=== PATIENT | female | born 1955 | race Caucasian/White ===

== ENCOUNTER 2017-05-03 14:51 | Inpatient (IN) | payer BC ==
[~2017-05-03] VITALS: Ht 152.4 cm; Wt 54.6 kg
[2017-05-03 15:03] VITALS: BP 129/58; PULSE 99; RESP 16; TEMP 99.2; O2SAT 88
[2017-05-03] MEDS ORDERED: SODIUM CHLOR 0.9% 1000 ML INJ 1,000 ML IV ONE (16:15)
[2017-05-03] MEDS ORDERED: ONDANSETRON HCL 4 MG/2 ML VIAL IV PUSH ONE (16:15)
[2017-05-03] MEDS ORDERED: KETOROLAC TROMETHAMINE 30 MG/ML (IVP) VIAL IV PUSH ONE (16:15)
--- NOTE | 2017-05-03 16:33 | RADRPT ---
EXAM DATE/TIME: 05/03/2017 16:17 [facility] COMPARISON: No previous studies available for comparison. INDICATIONS : Cough, congestion, nausea, and fever. MEDICAL HISTORY : None. SURGICAL HISTORY : None. ENCOUNTER: Initial ACUITY: 3 days PAIN SCORE: 0/10 LOCATION: Bilateral chest FINDINGS: Right lung is clear. Heart size is normal. There is a nodular opacity measuring 1.5 cm overlying the left ninth posterior rib at the mid clavicular line. Lung nodule not excluded. No obvious consolidati on or effusion. CONCLUSION: Left lung nodular density identified. CT chest recommended. Vazquez Cabrera MD on May 03, 2017 at 16:30 Board Certified Radiologist. This report was verified electronically.
[2017-05-03 16:38] LABS: AUTOMATED NEUTROPHIL # 9.7 TH/MM3 (1.8-7.7); BASOPHIL % 0.4 % (0.0-2.0); HEMATOCRIT 36.4 % (35.0-46.0); LYMPH % 3.3 % (9.0-44.0); LYMPHOCYTE # 0.4 TH/MM3 (1.0-4.8); MEAN CELL VOLUME 89.7 FL (80.0-100.0); MEAN CORPUSCULAR HEMOGLOBIN 30.1 PG (27.0-34.0); MEAN CORPUSCULAR HGB CONC 33.6 % (32.0-36.0); NEUT % 88.3 % (16.0-70.0); PLATELET COUNT 199 TH/MM3 (150-450); RED BLOOD COUNT 4.06 MIL/MM3 (4.00-5.30)
[2017-05-03 16:43] LABS: CHLORIDE 92 MEQ/L (98-107); POTASSIUM 3.6 MEQ/L (3.5-5.1); SODIUM (NA) 129 MEQ/L (136-145)
[2017-05-03] MEDS ORDERED: RESP: ALBUTEROL 2.5 MG/3 ML NEB (SCH) NEB ONE (16:45)
[2017-05-03 16:47] LABS: ANION GAP 10 MEQ/L (5-15); BICARBONATE 27.4 MEQ/L (21.0-32.0); BLOOD UREA NITROGEN 10 MG/DL (7-18)
[2017-05-03 16:50] LABS: ALT (GPT) 60 U/L (10-53); AST (GOT) 77 U/L (15-37); GLOMERULAR FILTRATION RATE 114 ML/MIN (>89)
[2017-05-03 16:51] LABS: HEMO FLAGS DIFF FINAL
[2017-05-03 16:52] LABS: TOTAL BILIRUBIN ADULT 0.7 MG/DL (0.2-1.0)
[2017-05-03 16:53] LABS: ALKALINE PHOSPHATASE 49 U/L (45-117)
--- NOTE | 2017-05-03 17:03 | PD ---
HPI Chief Complaint: Fever Time Seen by Provider: 16:05 Travel History International Travel<30 days: No Contact w/Intl Traveler<30days: No Traveled to known affect area: No History of Present Illness HPI Patient is a 62-year-old female who comes in complaining of cough, sore throat, feeling unwell for the past 3 days. She says this morning she noticed she had a fever of 102. She also had an episode of vomiting. She says she took some ibuprofen prior to arrival around 12:30 today. She says she feels some tightness in her chest. She denies any abdominal pain. She has not had any leg pain or swelling. She is visiting here from [place] and was supposed to fly back this afternoon. 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 , allergies) Tetanus Vaccination: > 5 Years Influenza Vaccination: No ?: Not Past Surgical History Surgical History: No Previous Surgery Social History Alcohol Use: Yes (wine) Tobacco Use: No Substance Use: No Allergies-Medications (Allergen,Severity, Reaction): Coded Allergies: No Known Allergies (Unverified , 05/03/17) Review of Systems Except as stated in HPI: all other systems reviewed are Neg General / Constitutional: Positive: Fever HENT: No: Headaches, Lightheadedness Cardiovascular: No: Chest Pain or Discomfort Respiratory: Positive: Cough, Shortness of Breath Gastrointestinal: Positive: Vomiting, No: Abdominal Pain Musculoskeletal: No: Edema, Pain Skin: No Rash, No Change in Pigmentation Neurologic: No: Weakness, Dizziness Physical Exam Narrative GENERAL: Awake and alert, no acute distress. SKIN: Focused skin assessment warm/dry. HEAD: Atraumatic. Normocephalic. EYES: Pupils equal and round. No scleral icterus. ENT: Mucous membranes pink and moist. NECK: Trachea midline. No JVD. CARDIOVASCULAR: Regular rate and rhythm. No murmur appreciated. RESPIRATORY: No accessory muscle use. Crackles at the right lung base. Breath sounds equal bilaterally. GASTROINTESTINAL: Abdomen soft, non-tender, nondistended. MUSCULOSKELETAL: No obvious deformities. No clubbing. No cyanosis. No edema. No calf tenderness. NEUROLOGICAL: Awake and alert. No obvious cranial nerve deficits. Motor grossly within normal limits. Normal speech. PSYCHIATRIC: Appropriate mood and affect; insight and judgment normal. Data Data Last Documented VS Vital Signs Date Time Temp Pulse Resp B/P (MAP) Pulse Ox O2 Delivery O2 Flow Rate FiO2 05/03/17 15:50 88 Nasal Cannula 2.00 05/03/17 15:46 20 05/03/17 15:03 99.2 99 129/58 (81) Orders Orders Iv Access Insert/Monitor (05/03/17 16:11) Complete Blood Count With Diff (05/03/17 16:11) Comprehensive Metabolic Panel (05/03/17 16:11) Chest, Pa & Lat (05/03/17 ) Ketorolac Inj (Toradol Inj) (05/03/17 16:15) Ondansetron Inj (Zofran Inj) (05/03/17 16:15) Sodium Chlor 0.9% 1000 Ml Inj (Ns 1000 M (05/03/17 16:15) Albuterol Neb (Albuterol Neb) (05/03/17 16:45) Ct Thorax/ Chest Wo Iv Contras (05/03/17 ) Ceftriaxone Inj (Rocephin Inj) (05/03/17 17:45) Azithromycin Inj (Zithromax Inj) (05/03/17 17:45) Admit Order (Ed Use Only) (05/03/17 ) Labs Laboratory Tests Test 05/03/17 16:25 White Blood Count 11.0 TH/MM3 Red Blood Count 4.06 MIL/MM3 Hemoglobin 12.2 GM/DL Hematocrit 36.4 % Mean Corpuscular Volume 89.7 FL Mean Corpuscular Hemoglobin 30.1 PG Mean Corpuscular Hemoglobin Concent 33.6 % Red Cell Distribution Width 12.0 % Platelet Count 199 TH/MM3 Mean Platelet Volume 6.9 FL Neutrophils (%) (Auto) 88.3 % Lymphocytes (%) (Auto) 3.3 % Monocytes (%) (Auto) 8.0 % Eosinophils (%) (Auto) 0.0 % Basophils (%) (Auto) 0.4 % Neutrophils # (Auto) 9.7 TH/MM3 Lymphocytes # (Auto) 0.4 TH/MM3 Monocytes # (Auto) 0.9 TH/MM3 Eosinophils # (Auto) 0.0 TH/MM3 Basophils # (Auto) 0.0 TH/MM3 CBC Comment DIFF FINAL Differential Comment Blood Urea Nitrogen 10 MG/DL Creatinine 0.54 MG/DL Random Glucose 96 MG/DL Total Protein 7.5 GM/DL Albumin 4.2 GM/DL Calcium Level 8.8 MG/DL Alkaline Phosphatase 49 U/L Aspartate Amino Transf (AST/SGOT) 77 U/L Alanine Aminotransferase (ALT/SGPT) 60 U/L Total Bilirubin 0.7 MG/DL Sodium Level 129 MEQ/L Potassium Level 3.6 MEQ/L Chloride Level 92 MEQ/L Carbon Dioxide Level 27.4 MEQ/L Anion Gap 10 MEQ/L Estimat Glomerular Filtration Rate 114 ML/MIN MDM Medical Decision Making Medical Screen Exam Complete: Yes Emergency Medical Condition: Yes Differential Diagnosis Pneumonia versus bronchitis versus viral illness Narrative Course Patient is a 62-year-old female comes in complaining of fever and cough. Exam shows some crackles in the lower lungs. Patient has an oxygen saturation of 88 % in room air. She is placed on 2 L via nasal cannula. IV status, labs sent. Patient connected to the teacher vocational training. Labs show no acute abnormalities other than a left shift in her white blood cell count. Chest x-ray was concerning for a nodule. CT of the chest was performed and shows several areas of pneumonia. Patient treated with Rocephin and azithromycin. She is also given IV fluids, Toradol, Zofran. Given one albuterol treatment without much relief of her symptoms. She'll be admitted for further management. Diagnosis Primary Impression: Pneumonia Qualified Codes: J18.9 - Pneumonia, unspecified organism Additional Impression: Hypoxia Admitting Information Admitting Physician Requests: Admit Rachel Pelayo MD May 03, 2017 17:03
--- NOTE | 2017-05-03 17:29 | RADRPT ---
EXAM DATE/TIME: 05/03/2017 17:18 [facility] COMPARISON: CHEST PA & LAT, May 03, 2017, 16:17. INDICATIONS : Cough, fever, nausea, and sore throat. Abnormal chest xray. RADIATION DOSE: 6.55 CTDIvol (mGy) MEDICAL HISTORY : Hypercholesterolemia. SURGICAL HISTORY : None. ENCOUNTER: Initial ACUITY: 3 days PAIN SCALE: 0/10 LOCATION: chest TECHNIQUE: Volumetric scanning of the chest was performed. Using automated exposure control and adjustment of t he mA and/or kV according to patient size, radiation dose was kept as low as reasonably achievable to obtain optimal diagnostic quality images. DICOM format image data is available electronically for r eview and comparison. Follow-up recommendations for detected pulmonary nodules are based at a minimum on nodule size and pa tient risk factors according to Fleischner Society Guidelines. FINDINGS: There is patchy consolidation in the right upper lobe, and superior segment left lower lobe as well a s both lower lobe posterior laterally. One focus of consolidation in the left lower lobe on image 38 account for the nodular opacity seen on chest x-ray. No pleural or pericardial effusions are seen. Ahuja bcentimeter diastinal lymph nodes. Coronary calcification. Osseous structures are intact. CONCLUSION: 1. Patchy areas of bilateral airspace disease including a nodular focus of consolidation in the left lower lobe which accounts for the chest radiographic abnormality. The findings are characteristic of pneumonia. 2. Coronary artery calcification. Vazquez Cabrera MD on May 03, 2017 at 17:26 Board Certified Radiologist. This report was verified electronically.
[2017-05-03] MEDS ORDERED: AZITHROMYCIN INJ 500 MG in SODIUM CHLOR 0.9% 250 ML INJ 250 ML IV ONE (17:45)
[2017-05-03] MEDS ORDERED: cefTRIAXone INJ 1,000 MG in SODIUM CHLORIDE 0.9% INJ 100 ML IV ONE (17:45)
[2017-05-03] MEDS ORDERED: ACETAMINOPHEN 325 MG TAB PO PRN (18:30)
[2017-05-03] MEDS ORDERED: RESP: ALBUTEROL 2.5 MG/IPRATROPIUM 0.5 MG NEB (PRN) INH (18:30)
[2017-05-03] MEDS ORDERED: ONDANSETRON HCL 4 MG/2 ML VIAL IV PRN (18:30)
[2017-05-03] MEDS ORDERED: SODIUM CHLORIDE 0.9% FLUSH 10 ML FLUSH IV FLUSH PRN (18:30)
[2017-05-03 18:39] VITALS: O2SAT 95
[2017-05-03 19:00] VITALS: BP 109/67; PULSE 91; RESP 18; O2SAT 98
[2017-05-03 20:00] VITALS: BP 131/85; PULSE 82; RESP 18; TEMP 97.7; O2SAT 96
[2017-05-03] MEDS: ENOXAPARIN SODIUM 40 MG/0.4 ML SYRINGE SQ SCH (20:26)
[2017-05-03 20:30] VITALS: BP 111/95
[2017-05-03 21:19] VITALS: O2SAT 97
[2017-05-03] MEDS: SODIUM CHLORIDE 0.9% FLUSH 10 ML FLUSH IV FLUSH SCH (22:33)
[2017-05-03] MEDS ORDERED: ZOLPIDEM TARTRATE 5 MG TAB PO PRN (22:45)
[2017-05-04] VITALS (8 sets, daily range): BP systolic 124–142; BP diastolic 78–93; PULSE 47–83; RESP 16–18; TEMP 97.7–100; O2SAT 93–97
[2017-05-04] MEDS ORDERED: AMBI10TA PO (02:12)
[2017-05-04 06:51] LABS: CHLORIDE 95 MEQ/L (98-107); POTASSIUM 3.5 MEQ/L (3.5-5.1); SODIUM (NA) 131 MEQ/L (136-145)
[2017-05-04 06:52] LABS: AUTOMATED NEUTROPHIL # 11.1 TH/MM3 (1.8-7.7); BASOPHIL % 0.1 % (0.0-2.0); EOSINOPHIL % 0.1 % (0.0-4.0); HEMATOCRIT 32.4 % (35.0-46.0); LYMPH % 6.5 % (9.0-44.0); LYMPHOCYTE # 0.8 TH/MM3 (1.0-4.8); MEAN CELL VOLUME 89.9 FL (80.0-100.0); MEAN CORPUSCULAR HEMOGLOBIN 30.6 PG (27.0-34.0); MONO % 6.3 % (0.0-8.0); PLATELET COUNT 174 TH/MM3 (150-450); RED BLOOD COUNT 3.61 MIL/MM3 (4.00-5.30); WHITE BLOOD COUNT 12.7 TH/MM3 (4.0-11.0)
[2017-05-04 06:55] LABS: HEMO FLAGS DIFF FINAL
[2017-05-04 07:16] LABS: ALKALINE PHOSPHATASE 43 U/L (45-117); ALT (GPT) 45 U/L (10-53); ANION GAP 7 MEQ/L (5-15); AST (GOT) 43 U/L (15-37); BICARBONATE 29.3 MEQ/L (21.0-32.0); BLOOD UREA NITROGEN 7 MG/DL (7-18); GLOMERULAR FILTRATION RATE 134 ML/MIN (>89); TOTAL BILIRUBIN ADULT 0.6 MG/DL (0.2-1.0)
[2017-05-04] MEDS: guaiFENesin/DEXTROMETHORPHAN 200 MG/20 MG/10 ML CUP PO PRN ×2 (08:30→16:14)
[2017-05-04] MEDS: SODIUM CHLORIDE 0.9% FLUSH 10 ML FLUSH IV FLUSH SCH ×2 (08:30→20:33)
[2017-05-04] MEDS ORDERED: ZOLPIDEM TARTRATE 5 MG TAB PO PRN (15:30)
[2017-05-04] MEDS ORDERED: PANTOPRAZOLE SOD 40 MG DELAYED RELEASE TAB PO ONE (15:45)
--- NOTE | 2017-05-04 16:19 | HHI.HP ---
HPI Service [facility] Primary Care Physician Non-Staff Admission Diagnosis Pneumonia, hypoxia Diagnoses: Travel History International Travel<30 Days: No Contact w/Intl Traveler <30 Da: No Traveled to Known Affected Are: No History of Present Illness 60-year-old female with a history of depression, GERD, who presents with a three -day history of worsening cough productive of clear sputum, one-day history of nonbloody nausea and vomiting, fevers up to 102.5. She denies any fatigue, chest pain, shortness of breath. Says she has a plane flight to go back home tomorrow. She has been in town for the past week, taking care of her nieces and nephews. She does note that they have had a similar illness over the past several days as well. Review of Systems Except as stated in HPI: all other systems reviewed are Neg Past Family Social History Past Medical History History of allergies. Receives allergy shots. Chronic neurogenic eczema. Depression. Denies any SI. Hyperlipidemia Past Surgical History No surgical history Reported Medications And states she takes a statin, as well as a PPI, unknown dose of Lexapro. Allergies: Coded Allergies: No Known Allergies (Unverified , 05/03/17) Family History Mother from stroke at age 89. Father with COPD. from [place] at age 92. Social History Nonsmoker. Patient drinks 2 glasses of wine per day. Denies any history of withdrawal. Denies any illicit drugs. Physical Exam Vital Signs Vital Signs Date Time Temp Pulse Resp B/P (MAP) Pulse Ox O2 Delivery O2 Flow Rate FiO2 05/04/17 13:06 18 05/04/17 12:00 98.1 68 18 124/78 (93) 97 05/04/17 10:00 96 Nasal Cannula 2.00 05/04/17 08:00 98.5 76 18 126/82 (97) 96 05/04/17 04:00 100.0 83 18 142/86 (104) 93 05/04/17 00:00 97.7 82 18 131/85 (100) 96 05/03/17 21:19 97 Nasal Cannula 2.00 05/03/17 20:30 90 18 111/95 (100) 95 Nasal Cannula 2.00 05/03/17 20:00 97.7 82 18 131/85 (100) 96 05/03/17 19:00 91 18 98 Nasal Cannula 2.00 05/03/17 19:00 91 18 109/67 (81) 98 Nasal Cannula 2.00 05/03/17 18:39 95 Nasal Cannula 2.50 Physical Exam GENERAL: This is a well-nourished, well-developed patient, who appears somewhat fatigued SKIN: No rashes, ecchymoses or lesions. Cool and dry. HEAD: Atraumatic. Normocephalic. No temporal or scalp tenderness. EYES: Pupils equal round and reactive. Extraocular motions intact. No scleral icterus. No injection or drainage. ENT: Nose without bleeding, purulent drainage or septal hematoma. Throat without erythema, tonsillar hypertrophy or exudate. Uvula midline. Airway patent. NECK: Trachea midline. No JVD or lymphadenopathy. Supple, nontender, no meningeal signs. CARDIOVASCULAR: Regular rate and rhythm without murmurs, gallops, or rubs. RESPIRATORY: crackles BL lung bases. GASTROINTESTINAL: Abdomen soft, non-tender, nondistended. No hepato-splenomegaly , or palpable masses. No guarding. MUSCULOSKELETAL: Extremities without clubbing, cyanosis, or edema. No joint tenderness, effusion, or edema noted. No calf tenderness. Negative Homans sign bilaterally. NEUROLOGICAL: Awake and alert. Cranial nerves II through XII intact. Motor and sensory grossly within normal limits. Five out of 5 muscle strength in all muscle groups. Normal speech. Laboratory Laboratory Tests Test 05/03/17 16:25 05/04/17 05:22 05/04/17 05:29 05/04/17 15:40 White Blood Count 11.0 12.7 Red Blood Count 4.06 3.61 Hemoglobin 12.2 11.0 Hematocrit 36.4 32.4 Mean Corpuscular Volume 89.7 89.9 Mean Corpuscular Hemoglobin 30.1 30.6 Mean Corpuscular Hemoglobin Concent 33.6 34.0 Red Cell Distribution Width 12.0 12.0 Platelet Count 199 174 Mean Platelet Volume 6.9 8.1 Neutrophils (%) (Auto) 88.3 87.0 Lymphocytes (%) (Auto) 3.3 6.5 Monocytes (%) (Auto) 8.0 6.3 Eosinophils (%) (Auto) 0.0 0.1 Basophils (%) (Auto) 0.4 0.1 Neutrophils # (Auto) 9.7 11.1 Lymphocytes # (Auto) 0.4 0.8 Monocytes # (Auto) 0.9 0.8 Eosinophils # (Auto) 0.0 0.0 Basophils # (Auto) 0.0 0.0 CBC Comment DIFF FINAL DIFF FINAL Differential Comment Blood Urea Nitrogen 10 7 Creatinine 0.54 0.47 Random Glucose 96 99 Total Protein 7.5 6.7 Albumin 4.2 3.5 Calcium Level 8.8 8.7 Alkaline Phosphatase 49 43 Aspartate Amino Transf (AST/SGOT) 77 43 Alanine Aminotransferase (ALT/SGPT) 60 45 Total Bilirubin 0.7 0.6 Sodium Level 129 131 Potassium Level 3.6 3.5 Chloride Level 92 95 Carbon Dioxide Level 27.4 29.3 Anion Gap 10 7 Estimat Glomerular Filtration Rate 114 134 B-Type Natriuretic Peptide 467 Prothrombin Time 11.0 Prothromb Time International Ratio 1.0 Result Diagram: 05/04/17 0522 05/04/17 0522 Imaging Last Impressions Chest X-Ray 05/03/17 0000 Signed Impressions: Service Date/Time: Wednesday, May 03, 2017 16:17 - CONCLUSION: Left lung nodular density identified. CT chest recommended. Vazquez Cabrera MD Chest CT 05/03/17 0000 Signed Impressions: Service Date/Time: Wednesday, May 03, 2017 17:18 - CONCLUSION: 1. Patchy areas of bilateral airspace disease including a nodular focus of consolidation in the left lower lobe which accounts for the chest radiographic abnormality. The findings are characteristic of pneumonia. 2. Coronary artery calcification. Vazquez Cabrera MD Caprini VTE Risk Assessment Caprini VTE Risk Assessment: Mod/High Risk (score >= 2) Caprini Risk Assessment Model Point Value = 1 Point Value = 2 Point Value = 3 Point Value = 5 Age 41-60 Minor surgery BMI > 25 kg/m2 Swollen legs Varicose veins or History of unexplained or recurrent spontaneous Oral contraceptives or hormone replacement Sepsis (< 1 month) Serious lung disease, including pneumonia (< 1 month) Abnormal pulmonary function Acute myocardial infarction Congestive heart failure (< 1 month) History of inflammatory bowel disease Medical patient at bed rest Age 61-74 Arthroscopic surgery Major open surgery (> 45 min) Laparoscopic surgery (> 45 min) Malignancy Confined to bed (> 72 hours) Immobilizing plaster cast Central venous access Age >= 75 History of VTE Family history of VTE Factor V Leiden Prothrombin [id number] Lupus anticoagulant Anticardiolipin antibodies Elevated serum homocysteine Heparin-induced thrombocytopenia Other congenital or acquired thrombophilia Stroke (< 1 month) Elective arthroplasty Hip, pelvis, or leg fracture Acute spinal cord injury (< 1 month) Prophylaxis Regimen Total Risk Factor Score Risk Level Prophylaxis Regimen 0-1 Low Early ambulation 2 Moderate Order ONE of the following: *Sequential Compression Device (SCD) *Heparin 5000 units SQ BID 3-4 Higher Order ONE of the following medications: *Heparin 5000 units SQ TID *Enoxaparin/Lovenox 40 mg SQ daily (WT < 150 kg, CrCl > 30 mL/min) *Enoxaparin/Lovenox 30 mg SQ daily (WT < 150 kg, CrCl > 10-29 mL/min) *Enoxaparin/Lovenox 30 mg SQ BID (WT < 150 kg, CrCl > 30 mL/min) AND/OR *Sequential Compression Device (SCD) 5 or more Highest Order ONE of the following medications: *Heparin 5000 units SQ TID (Preferred with Epidurals) *Enoxaparin/Lovenox 40 mg SQ daily (WT < 150 kg, CrCl > 30 mL/min) *Enoxaparin/Lovenox 30 mg SQ daily (WT < 150 kg, CrCl > 10-29 mL/min) *Enoxaparin/Lovenox 30 mg SQ BID (WT < 150 kg, CrCl > 30 mL/min) AND *Sequential Compression Device (SCD) Assessment and Plan Assessment and Plan //Sepsis -Leukocytosis. Fever. Pneumonia on CT chest. -Continue IV antibiotics. Continue to monitor. //Pneumonia. -As seen on CT chest as above. -Continue IV antibiotics. //Elevated BNP. -Possibly secondary to underlying CHF, versus pulmonary hypertension from pneumonia. Monitor fluid status. Check echocardiogram. //Hyponatremia. Mild. Likely secondary to dehydration. Encourage hydration. Continue to monitor. //Transaminitis. Mild. Likely secondary to regular alcohol intake. Recommend stopping alcohol. Follow-up with primary care as outpatient. //Depression. Chronic. Stable. Continue home medications. //Insomnia. Chronic. Ambien. //GERD. Continue omeprazole //Hyperlipidemia. Chronic. hold statin due to transaminitis //DVT prophylaxis.Lovenox. Discussed Condition With pt , nurse, family at bedside. Physician Certification 2 Midnight Certification Type: Admission for Inpatient Services Order for Inpatient Services The services are ordered in accordance with Medicare regulations or non- Medicare payer requirements, as applicable. In the case of services not specified as inpatient-only, they are appropriately provided as inpatient services in accordance with the 2-midnight benchmark. Estimated LOS (days): 2 days is the estimated time the patient will need to remain in the hospital, assuming treatment plan goals are met and no additional complications. Post-Hospital Plan: Not yet determined Jin Keita MD May 04, 2017 16:19
[2017-05-04] MEDS ORDERED: cefTRIAXone INJ 1,000 MG in SODIUM CHLORIDE 0.9% INJ 100 ML IV SCH (18:00)
[2017-05-04] MEDS ORDERED: AZITHROMYCIN INJ 500 MG in SODIUM CHLOR 0.9% 250 ML INJ 250 ML IV SCH (20:00)
[2017-05-04] MEDS: ENOXAPARIN SODIUM 40 MG/0.4 ML SYRINGE SQ SCH (20:33)
[2017-05-05] VITALS: BP 135/65; PULSE 54; RESP 16; TEMP 100; O2SAT 100
[2017-05-05 05:59] LABS: AUTOMATED NEUTROPHIL # 9.5 TH/MM3 (1.8-7.7); BASOPHIL % 0.3 % (0.0-2.0); EOSINOPHIL % 0.4 % (0.0-4.0); HEMATOCRIT 33.4 % (35.0-46.0); LYMPH % 11.9 % (9.0-44.0); LYMPHOCYTE # 1.4 TH/MM3 (1.0-4.8); MEAN CORPUSCULAR HEMOGLOBIN 30.8 PG (27.0-34.0); MEAN CORPUSCULAR HGB CONC 33.9 % (32.0-36.0); MONO % 6.2 % (0.0-8.0); NEUT % 81.2 % (16.0-70.0); PLATELET COUNT 200 TH/MM3 (150-450); RED BLOOD COUNT 3.67 MIL/MM3 (4.00-5.30); WHITE BLOOD COUNT 11.6 TH/MM3 (4.0-11.0)
[2017-05-05 06:01] LABS: HEMO FLAGS DIFF FINAL
[2017-05-05 06:10] LABS: POTASSIUM 3.4 MEQ/L (3.5-5.1)
[2017-05-05 06:13] LABS: BICARBONATE 27.9 MEQ/L (21.0-32.0)
[2017-05-05 08:00] VITALS: BP 145/98; PULSE 87; RESP 16; TEMP 98.1; O2SAT 92
[2017-05-05 08:04] VITALS: O2SAT 95
[2017-05-05] MEDS: guaiFENesin/DEXTROMETHORPHAN 200 MG/20 MG/10 ML CUP PO PRN (08:47)
[2017-05-05] MEDS: SODIUM CHLORIDE 0.9% FLUSH 10 ML FLUSH IV FLUSH SCH (08:47)
[2017-05-05] MEDS ORDERED: PANTOPRAZOLE SOD 40 MG DELAYED RELEASE TAB PO SCH (09:00)
[2017-05-05 12:00] VITALS: BP 144/87; PULSE 90; RESP 17; TEMP 98.9; O2SAT 95
--- NOTE | 2017-05-05 12:51 | ECHRPT ---
Indication: HEART FAILURE CONCLUSIONS The left ventricular systolic function is normal with an estimated ejection fraction in the range of 60-65%. Mild concentric left ventricular hypertrophy. Normal left ventricular size. No regional wall motion abnormalities are present. Mild mitral valve regurgitation. There is trace tricuspid valve regurgitation. The estimated pulmonary arterial pressure is 42 mmHg. Mild pulmonary valve regurgitation. BP: 135 / 65 HR: 88 Rhythm: Other MEASUREMENTS (Male / Female) Normal Values Technical Quality:Fair 2D ECHO LV Diastolic Diameter PLAX 3.9 cm 4.2 - 5.9 / 3.9 - 5.3 cm LV Systolic Diameter PLAX 2.9 cm IVS Diastolic Thickness 1.4 cm 0.6 - 1.0 / 0.6 - 0.9 cm LVPW Diastolic Thickness 1.3 cm 0.6 - 1.0 / 0.6 - 0.9 cm LV Relative Wall Thickness 0.7 LVOT Diameter 2.0 cm LV Ejection Fraction MOD 4C 64.2 % LV Cardiac Index MOD 4C 3515.3 cm/minm LV Ejection Fraction 4C AL 63.9 % LV Cardiac Index 4C AL 3629.2 cm/minm M-MODE Aortic Root Diameter MM 2.6 cm LA Systolic Diameter MM 4.0 cm LA Ao Ratio MM 1.5 AV Cusp Separation MM 1.7 cm DOPPLER AV Peak Velocity 182.0 cm/s AV Peak Gradient 13.2 mmHg LVOT Peak Velocity 114.0 cm/s LVOT Peak Gradient 5.2 mmHg AV Area Cont Eq pk 2.0 cm MV Area PHT 5.0 cm Mitral E Point Velocity 107.0 cm/s Mitral A Point Velocity 106.0 cm/s Mitral E to A Ratio 1.0 LV E' Lateral Velocity 9.4 cm/s Mitral E to LV E' Lateral Ratio 11.4 LV E' Septal Velocity 8.2 cm/s Mitral E to LV E' Septal Ratio 13.1 TR Peak Velocity 285.0 cm/s TR Peak Gradient 32.5 mmHg FINDINGS LEFT VENTRICLE The left ventricular systolic function is normal with an estimated ejection fraction in the range of 60-65%. Mild concentric left ventricular hypertrophy. Normal left ventricular size. No regional wall motion abnormalities are present. RIGHT VENTRICLE Normal right ventricular size and systolic function. LEFT ATRIUM The left atrial size is normal. RIGHT ATRIUM The right atrial size is normal. ATRIAL SEPTUM Normal atrial septal thickness without atrial level shunting by limited color doppler interrogation. AORTA The aortic root and proximal ascending aorta are normal in size on limited imaging. MITRAL VALVE Mild mitral valve regurgitation. AORTIC VALVE Trileaflet aortic valve. No aortic valve stenosis or regurgitation. TRICUSPID VALVE There is trace tricuspid valve regurgitation. The estimated pulmonary arterial pressure is 42 mmHg. PULMONARY VALVE Mild pulmonary valve regurgitation. VESSELS The inferior vena cava is normal in size. PERICARDIUM No pericardial effusion. Miko Reed MD, FACC (Electronically Signed) Final Date:05 May 2017 12:50
[2017-05-05] MEDS ORDERED: LEVO750T3 PO (12:59)
[2017-05-05] MEDS ORDERED: VENTAER INH (12:59)
[2017-05-05] MEDS ORDERED: DEXT10SY2 PO (12:59)
--- NOTE | 2017-05-09 16:45 | HHI.PR ---
Subjective Remarks Patient seen the morning of 05/05. Says she is feeling much better. Feels like going home. She will drive home with her . Denies any chest pain or shortness of breath. Objective Result Diagram: 05/05/[id number]/05/17446 Objective Remarks GENERAL: Patient sitting up in bed. Appears comfortable. Alert and oriented 3. SKIN: Warm and dry. HEAD: Normocephalic. EYES: No scleral icterus. No injection or drainage. NECK: Supple, trachea midline. No JVD. CARDIOVASCULAR: Regular rate and rhythm without murmurs, gallops, or rubs. RESPIRATORY: Breath sounds equal bilaterally. No accessory muscle use. GASTROINTESTINAL: Abdomen soft, non-tender, nondistended. MUSCULOSKELETAL: No cyanosis, or edema. BACK: Nontender without obvious deformity. No CVA tenderness. A/P Assessment and Plan === 05/05/17 Low-grade fevers overnight. Symptomatically improved. As BNP elevated in the 400s, echocardiogram ordered. Likely some pulmonary hypertension secondary to pneumonia. Echardiogram reviewed. Mild concentric hypertrophy. Follow with primary care doctor. patient is advised not to fly on aircraft. Hyponatremia resolved. Sodium 139. For problem-based summary for most recent progress note, please see below. //Sepsis -Leukocytosis. Fever. Pneumonia on CT chest. -Continue IV antibiotics. Continue to monitor. //Pneumonia. -As seen on CT chest as above. -Continue IV antibiotics. //Elevated BNP. -Possibly secondary to underlying CHF, versus pulmonary hypertension from pneumonia. Monitor fluid status. Check echocardiogram. //Hyponatremia. Mild. Likely secondary to dehydration. Encourage hydration. Continue to monitor. //Transaminitis. Mild. Likely secondary to regular alcohol intake. Recommend stopping alcohol. Follow-up with primary care as outpatient. //Depression. Chronic. Stable. Continue home medications. //Insomnia. Chronic. Ambien. //GERD. Continue omeprazole //Hyperlipidemia. Chronic. hold statin due to transaminitis //DVT prophylaxis.Lovenox. Discharge Planning Discharge home. Follow-up primary care doctor. Jin Keita MD May 09, 2017 16:45
--- NOTE | 2017-05-09 16:50 | HHI.DS ---
Discharge Summary Admission Date May 03, 2017 at 18:12 Discharge Date: May 05, 2017 Admitting Diagnosis Pneumonia, hypoxia (1) Pneumonia ICD Code: J18.9 - Pneumonia, unspecified organism Status: Acute Procedures No invasive procedures. Brief History - From Admission 60-year-old female with a history of depression, GERD, who presents with a three -day history of worsening cough productive of clear sputum, one-day history of nonbloody nausea and vomiting, fevers up to 102.5. She denies any fatigue, chest pain, shortness of breath. Says she has a plane flight to go back home tomorrow. She has been in town for the past week, taking care of her nieces and nephews. She does note that they have had a similar illness over the past several days as well. CBC/BMP: 05/05/17 0447 05/05/17 0447 Imaging Last Impressions Chest X-Ray 05/03/17 0000 Signed Impressions: Service Date/Time: Wednesday, May 03, 2017 16:17 - CONCLUSION: Left lung nodular density identified. CT chest recommended. Vazquez Cabrera MD Chest CT 05/03/17 0000 Signed Impressions: Service Date/Time: Wednesday, May 03, 2017 17:18 - CONCLUSION: 1. Patchy areas of bilateral airspace disease including a nodular focus of consolidation in the left lower lobe which accounts for the chest radiographic abnormality. The findings are characteristic of pneumonia. 2. Coronary artery calcification. Vazquez Cabrera MD Hospital Course Patient presented with fevers, leukocytosis up to 12.7 on hospital day one, heart rate in the 90s. His x-ray showed left lung nodular density. CT chest showed patchy areas of bilateral airspace disease including nodular focus of consolidation in the left lower lobe, characteristic of pneumonia. BNP was elevated, in the 400s. Echocardiogram performed and shows left concentric hypertrophy, likely secondary to long-standing hypertension, as well as mildly increased pulmonary pressures in the 40s, likely secondary to pneumonia. This improved with broad-spectrum antibiotics. Patient was discharged on antibiotics to complete treatment course. She will need a follow with primary care to go over results from this admission. She'll need to avoid flying. Patient and convey understanding. For problem-based summary for most recent progress note, please see below. === 05/05/17 Low-grade fevers overnight. Symptomatically improved. As BNP elevated in the 400s, echocardiogram ordered. Likely some pulmonary hypertension secondary to pneumonia. Echardiogram reviewed. Mild concentric hypertrophy. Follow with primary care doctor. patient is advised not to fly on aircraft. //Sepsis -Leukocytosis. Fever. Pneumonia on CT chest. -Continue IV antibiotics. Continue to monitor. //Pneumonia. -As seen on CT chest as above. -Continue IV antibiotics. //Elevated BNP. -Possibly secondary to underlying CHF, versus pulmonary hypertension from pneumonia. Monitor fluid status. Check echocardiogram. //Hyponatremia. Mild. Likely secondary to dehydration. Encourage hydration. Continue to monitor. //Transaminitis. Mild. Likely secondary to regular alcohol intake. Recommend stopping alcohol. Follow-up with primary care as outpatient. //Depression. Chronic. Stable. Continue home medications. //Insomnia. Chronic. Ambien. //GERD. Continue omeprazole //Hyperlipidemia. Chronic. hold statin due to transaminitis //DVT prophylaxis.Lovenox. Pt Condition on Discharge: Good Discharge Disposition: Discharge Home Discharge Time: > 30 minutes Discharge Instructions DIET: Follow Instructions for: Heart Healthy Diet Activities you can perform: Regular-No Restrictions Other Activity Instructions: avoid airline flight for next week. Follow up Referrals: PCP Follow-up - 1 Week New Medications: Albuterol 18 GM Inh (Ventolin Hfa 18 GM Inh) 90 Mcg/Act Aer 2 PUFF INH Q4-6H PRN for SHORTNESS OF BREATH, #1 INHALER 0 Refills Levofloxacin (Levofloxacin) 750 Mg Tablet 750 MG PO DAILY for Infection, #5 TAB 0 Refills Dextromethorphan-Guaifenesin (Dextromethorphan/Guaifene 10-100 mg/5Ml) 1 Syp Syp 10 ML PO Q4H PRN for COUGH for 7 Days, #1 BOTTLE Continued Medications: Zolpidem (Ambien) 10 Mg Tab 10 MG PO HS PRN for INSOMNIA, TAB 0 Refills Keita,Jin D MD May 09, 2017 16:50
== END 2017-05-05 13:24 | disposition home or self-care (01) | DRG 871 ==
LOC: PHED 14:51 → PHEDA 18:12 → PH3A 20:37
PROVIDERS: ADMIT Internal Medicine; ATTEND Internal Medicine
DX: A41.9 Sepsis, unspecified organism (principal); J18.9 Pneumonia, unspecified organism; E87.1 Hypo-osmolality and hyponatremia; E78.5 Hyperlipidemia, unspecified; F41.9 Anxiety disorder, unspecified; R09.02 Hypoxemia; K21.9 Gastro-esophageal reflux disease without esophagitis; L30.8 Other specified dermatitis; E86.0 Dehydration; G47.00 Insomnia, unspecified; F32.9 Major depressive disorder, single episode, unspecified
CPT/HCPCS: 71020; 71250; 80048; 80053; 83880; 85025; 85610; 93306; 94150; 94640; 94664; 96361; 96374; 96375; J0456; J0696; J1650; J1885; J2405; J7030; J7050; J7613